=== PATIENT | male | born 1955 | race Caucasian/White ===

== ENCOUNTER → 2016-07-20 | Outpatient (CLI) | payer BC, OTHER ==
[~2016-07-20] MED LIST: ADDERALL XR20 MG PO; ANTIVERT 25MG25 MG PO; CELEBREX 200MG200 MG PO; HCTZ12.5TAB PO; PHENERGAN 25 TA25 MG PO; VALIUM 5MG T5 MG/TAB PO; ZANTAC 150150 MG PO; ZOCOR 20MG20 MG PO
== END ==
LOC: BHSO 15:57
DX: F90.0 Attention-deficit hyperactivity disorder, predominantly inattentive type (principal)

== ENCOUNTER → 2017-01-20 | Outpatient (CLI) | payer BC, OTHER | LOC: BHSO 12:48 | DX: F90.0 Attention-deficit hyperactivity disorder, predominantly inattentive type (principal) ==

== ENCOUNTER → 2017-07-21 | Outpatient (CLI) | payer BC, OTHER ==
[~2017-07-21] MED LIST changes: +ADDERALL XR30 MG PO; +ADDERALL10 MG PO; +FLOMAX 0.40.4 MG/CAP PO; +FLOVENT 220MCG7.9 GM IH; +HCTZ 25MG TAB25 MG PO; +LIPITOR 40MG TA40 MG PO; +OMEGA-31 SGL PO; +PHARMASSURE ZIN50 MG PO; +PROAIR HFA0.09 MG/AC IH; +VITAMIN B COMPL1 SGL PO; +VITAMIN E1000 U/CAP PO
== END ==
LOC: BHSO 13:44
DX: F90.0 Attention-deficit hyperactivity disorder, predominantly inattentive type (principal)
CPT/HCPCS: G0463

== ENCOUNTER 2017-08-13 11:31 | Emergency (ER) | payer BC, OTHER ==
[~2017-08-13] VITALS: Ht 182.9 cm; Wt 119.1 kg
[2017-08-13 11:34] VITALS: BP 164/89; PULSE 70; TEMP 98
[2017-08-13] MEDS ORDERED: VITAMIN E 400 U4001 PO (11:41)
[2017-08-13] MEDS ORDERED: NORCO 325 MG-7.1 TAB PO (11:43)
[2017-08-13] MEDS ORDERED: DOXYCYCLINE HY100 MG PO (11:43)
[2017-08-13] MEDS ORDERED: AFRIN 15 ML15 ML NS (11:44)
[2017-08-13] MEDS ORDERED: IRON 27 MG PO (11:47)
[2017-08-13] MEDS ORDERED: MUCINEX DM 60 M1 TER PO (11:48)
[2017-08-13] MEDS ORDERED: PRILOSEC 20MG20 MG PO (11:50)
[2017-08-13] MEDS ORDERED: FIBER GUMMIES2.5 GM PO (11:51)
[2017-08-13] MEDS ORDERED: ALEVE 220MG220 MG PO (11:51)
[2017-08-13] MEDS ORDERED: PROBIOTIC FORMU1 CAP PO (11:51)
[2017-08-13] MEDS ORDERED: PREDNISONE20 MG PO (12:06)
[2017-08-13] MEDS ORDERED: MOBIC15 MG PO (12:06)
== END 2017-08-13 12:35 | disposition home or self-care (01) ==
LOC: COL.ER 11:31
DX: M54.5 Low back pain (principal); I10 Essential (primary) hypertension; I48.91 Unspecified atrial fibrillation; Z98.890 Other specified postprocedural states; Z88.2 Allergy status to sulfonamides
CPT/HCPCS: J1885; J2360

== ENCOUNTER 2017-08-13 21:55 | Emergency (ER) | payer BC, OTHER ==
[~2017-08-13] VITALS: Ht 182.9 cm; Wt 119.1 kg
[~2017-08-13 21:55] MED LIST changes: +AFRIN 15 ML15 ML NS; +ALEVE 220MG220 MG PO; +DOXYCYCLINE HY100 MG PO; +FIBER GUMMIES2.5 GM PO; +IRON 27 MG PO; +MOBIC15 MG PO; +MUCINEX DM 60 M1 TER PO; +NORCO 325 MG-7.1 TAB PO; +PREDNISONE20 MG PO; +PRILOSEC 20MG20 MG PO; +PROBIOTIC FORMU1 CAP PO; +VITAMIN E 400 U4001 PO
[2017-08-13 21:59] VITALS: TEMP 97.9
[2017-08-13 23:11] LABS: COLLECTION METHOD CLEAN CATCH
[2017-08-13 23:21] LABS: MUCOUS Present /lpf; PH 5 (5-8); SQUAMOUS EPITHELIAL None Seen /hpf; URINE APPEARANCE Clear; URINE BACTERIA None Seen /hpf; URINE BILIRUBIN Negative (NEGATIVE); URINE BLOOD Negative (NEGATIVE); URINE COLOR Yellow; URINE GLUCOSE 3+ (NEGATIVE); URINE KETONE Negative (NEGATIVE); URINE LEUKOCYTE ESTERASE Negative (NEGATIVE); URINE NITRATE Negative (NEGATIVE); URINE PROTEIN(semi-quant) Negative (NEGATIVE); URINE RBC 0-2 /hpf
[2017-08-14 00:37] VITALS: BP 153/93; PULSE 81
== END 2017-08-14 00:25 | disposition home or self-care (01) ==
LOC: COL.ER 21:55
PROVIDERS: Nurse Practitioner
DX: M54.5 Low back pain (principal); I10 Essential (primary) hypertension; J45.909 Unspecified asthma, uncomplicated; Z88.2 Allergy status to sulfonamides; Z79.52 Long term (current) use of systemic steroids
CPT/HCPCS: J1170

== ENCOUNTER 2017-12-20 17:51 | Emergency (ER) | payer BC, OTHER ==
[~2017-12-20] VITALS: Ht 182.9 cm; Wt 120.9 kg
[2017-12-20 17:55] VITALS: TEMP 98.3
[2017-12-20] MEDS ORDERED: PERCOCET 325 MG1 TAB PO (18:41)
[2017-12-20] MEDS ORDERED: HCTZ 25MG TAB25 MG PO (18:41)
[2017-12-20] MEDS ORDERED: ROBAXIN 75750 MG/TAB PO (18:42)
[2017-12-20] MEDS ORDERED: FLOMAX 0.40.4 MG/CAP PO (18:42)
[2017-12-20 18:55] LABS: BASO % 0.4 % (0.0-2.0); EOS # 0.2 (0.0-0.7); EOS % 2.6 % (0-4.0); GRAN # 6.6 (1.4-6.5); GRAN % 71.5 % (42.2-75.2); HEMOGLOBIN 12.7 g/dl (13.5-18.0); LYMPH # 1.6 (1.2-3.4); LYMPH % 17.2 % (20.0-51.0); MEAN CELL VOLUME 97 fl (80.0-100.0); MEAN CORPUSCULAR HEMOGLOBIN 34 pg (27.0-31.0); MEAN CORPUSCULAR HGB CONC 35 g/dl (33.0-37.0); MEAN PLATELET VOLUME 8.3 fl (7.4-10.4); MONO # 0.7 (0.1-0.6); MONO % 7.9 % (1.7-9.3); PLATELET COUNT 360 K/mm3 (130-400); RED BLOOD COUNT 3.74 M/mm3 (4.20-5.60); REDCELL DISTRIBUTION WIDTH-CV 12.1 % (11.5-14.5)
[2017-12-20 18:57] LABS: HEMATOCRIT 36.4 % (42.0-52.0)
[2017-12-20 19:07] LABS: ALBUMIN 3.5 gm/dL (3.5-5.0); BILIRUBIN,TOTAL 0.3 mg/dL (0.0-1.0); CALCIUM 8.7 mg/dL (8.4-10.2); CREATININE, serum 0.83 mg/dL (0.66-1.25); POTASSIUM 3.9 mmol/L (3.4-5.0)
[2017-12-20] MEDS ORDERED: NORCO 325 MG-51 TAB PO (20:42)
[2017-12-20 20:52] VITALS: BP 146/68; PULSE 86
== END 2017-12-20 20:53 | disposition home or self-care (01) ==
LOC: COL.ER 17:51
PROVIDERS: Physician Assistant
DX: M25.562 Pain in left knee (principal); I48.91 Unspecified atrial fibrillation

== ENCOUNTER 2018-06-08 08:58 | Day surgery (SDC) | payer BC, OTHER ==
[~2018-06-08] VITALS: Ht 182.9 cm; Wt 124.6 kg
[~2018-06-08 08:58] MED LIST changes: +NORCO 325 MG-51 TAB PO; +PERCOCET 325 MG1 TAB PO; +ROBAXIN 75750 MG/TAB PO
[2018-06-08 09:38] VITALS: BP 159/82; PULSE 79; TEMP 97.8
[2018-06-08] MEDS ORDERED: COZAAR 50MG50 MG/TAB PO (09:58)
[2018-06-08] MEDS ORDERED: ADDERALL30 MG PO (09:58)
[2018-06-08] MEDS ORDERED: ZYRTEC 10MG10 MG PO (09:59)
[2018-06-08] MEDS ORDERED: TIROSINT50 MC1 PO (10:00)
[2018-06-08] MEDS ORDERED: PROAIR HFA0.09 MG/AC IH (10:01)
[2018-06-08] MEDS ORDERED: MULTI VITAMINS1 TAB PO (10:03)
--- NOTE | 2018-06-08 10:03 | NUR ---
TO VIVIANA AT 0910- CALL LIGHT IN REACH
[2018-06-08 11:30] VITALS: BP 115/72; PULSE 76; TEMP 98.1
--- NOTE | 2018-06-08 11:30 | NUR ---
Pt arrived to room from Endo procedure. Pt walked to chair with x2 assist by nurses. Pt still very drowsy but will answer yes/no to questions. vital signs stable. Pt's in room. Pt denies any pain or N/V at this time. Report received from IVANA Babin. Call light within reach.
[2018-06-08 11:45] VITALS: BP 120/71; PULSE 73; TEMP 98
--- NOTE | 2018-06-08 11:45 | NUR ---
Pt more alert. Asking for coffee and crackers. Denies any pain at this time. Pt's in room. vital signs stable. Call light within reach.
[2018-06-08 12:00] VITALS: BP 125/69; PULSE 71
--- NOTE | 2018-06-08 12:00 | NUR ---
PATIENT AWAKE AND TALKING TO . READY TO LEAVE. DR HAS SEEN PATIENT. VS APPEAR STABLE. WILL DISCHARGE PATIENT.
[2018-06-08 12:11] VITALS: BP 11/75; PULSE 68
== END 2018-06-08 12:23 | disposition home or self-care (01) ==
LOC: SDCO 08:58
DX: Z12.11 Encounter for screening for malignant neoplasm of colon (principal); D12.3 Benign neoplasm of transverse colon; K63.5 Polyp of colon
CPT/HCPCS: OP; J2250; J2405; J3010; J7030

== ENCOUNTER → 2018-07-19 | Outpatient (CLI) | payer BC, OTHER ==
[~2018-07-19] MED LIST changes: +ADDERALL30 MG PO; +COZAAR 50MG50 MG/TAB PO; +MULTI VITAMINS1 TAB PO; +TIROSINT50 MC1 PO; +ZYRTEC 10MG10 MG PO
== END ==
LOC: BHSO 16:01
DX: F90.0 Attention-deficit hyperactivity disorder, predominantly inattentive type (principal)
CPT/HCPCS: G0463

== ENCOUNTER 2018-09-23 20:05 | Emergency (ER) | payer BC, OTHER ==
[~2018-09-23] VITALS: Ht 182.9 cm; Wt 122.7 kg
[2018-09-23 20:10] VITALS: BP 157/80; TEMP 97.4
[2018-09-23 22:09] VITALS: PULSE 81
== END 2018-09-23 21:36 | disposition home or self-care (01) ==
LOC: COL.ER 20:05
DX: S61.011A Laceration without foreign body of right thumb without damage to nail, initial encounter (principal); I48.91 Unspecified atrial fibrillation; I10 Essential (primary) hypertension; F90.9 Attention-deficit hyperactivity disorder, unspecified type; Z23 Encounter for immunization; Z96.643 Presence of artificial hip joint, bilateral; Z98.890 Other specified postprocedural states; Z88.2 Allergy status to sulfonamides; W27.4XXA Contact with kitchen utensil, initial encounter; Y93.G3 Activity, cooking and baking

== ENCOUNTER → 2019-10-04 | Outpatient (CLI) | payer BC, OTHER | LOC: BHSO 13:55 | DX: F90.0 Attention-deficit hyperactivity disorder, predominantly inattentive type (principal) | CPT/HCPCS: G0463 ==

== ENCOUNTER 2019-12-15 13:01 | Emergency (ER) | payer BC, OTHER ==
[~2019-12-15] VITALS: Ht 182.9 cm; Wt 123.6 kg
[2019-12-15 13:05] VITALS: TEMP 98.1
[2019-12-15] MEDS ORDERED: FLOVENT 220MCG7.9 GM IH (13:17)
[2019-12-15] MEDS ORDERED: MAXZIDE-25MG TA1 TAB PO (13:17)
[2019-12-15] MEDS ORDERED: PRILOSEC 20MG20 MG PO (13:18)
[2019-12-15] MEDS ORDERED: NORCO 325 MG-7.1 TAB PO (13:19)
[2019-12-15] MEDS ORDERED: FLEXERIL 1010 MG/TAB PO (15:01)
[2019-12-15] MEDS ORDERED: NORCO 325 MG-51 TAB PO (15:03)
[2019-12-15 15:35] VITALS: BP 118/68; PULSE 76
== END 2019-12-15 15:35 | disposition home or self-care (01) ==
LOC: COL.ER 13:01
DX: M54.5 Low back pain (principal); Z88.2 Allergy status to sulfonamides; X50.1XXA Overexertion from prolonged static or awkward postures, initial encounter
CPT/HCPCS: J1170

== ENCOUNTER → 2020-01-15 | Outpatient (CLI) | payer BC, OTHER ==
[~2020-01-15] VITALS: Ht 182.9 cm; Wt 124.5 kg
[~2020-01-15] MED LIST changes: +FLEXERIL 1010 MG/TAB PO; +MASON NATURAL S1 CAP PO; +MAXZIDE-25MG TA1 TAB PO; +MELATONIN5 M1 SL; -MULTI VITAMINS1 TAB PO; +TRELEGY ELLIPT1 EACH IH
[2020-01-15 12:42] VITALS: BP 178/98; PULSE 87
[2020-01-15 14:20] VITALS: BP 167/96; PULSE 80
[2020-01-15 14:30] VITALS: BP 173/104; PULSE 83
[2020-01-15 14:45] VITALS: BP 158/94; PULSE 76
== END ==
LOC: COL.RAD 12:21
DX: M51.16 Intervertebral disc disorders with radiculopathy, lumbar region (principal)
CPT/HCPCS: J3301

== ENCOUNTER → 2020-01-30 | Outpatient (CLI) | payer BC, OTHER ==
[~2020-01-30] VITALS: Ht 182.9 cm; Wt 121.8 kg
[2020-01-30 12:00] VITALS: BP 161/98; PULSE 82
[2020-01-30 12:33] VITALS: BP 130/86; PULSE 75
== END ==
LOC: COL.RAD 11:38
DX: M51.36 Other intervertebral disc degeneration, lumbar region (principal)
CPT/HCPCS: J3301

== ENCOUNTER 2020-04-24 11:32 | Inpatient (IN) | payer BC, OTHER ==
[~2020-04-24] VITALS: Ht 182.9 cm; Wt 122.3 kg
[2020-04-24 12:21] LABS: BASO % 0.3 % (0.0-2.0); EOS % 0.1 % (0-4.0); GRAN # 4.9 (1.4-6.5); GRAN % 72.8 % (42.2-75.2); HEMATOCRIT 45.1 % (42.0-52.0); HEMOGLOBIN 15.9 g/dl (13.5-18.0); LYMPH % 15.1 % (20.0-51.0); MEAN CELL VOLUME 99 fl (80.0-100.0); MEAN CORPUSCULAR HEMOGLOBIN 35 pg (27.0-31.0); MEAN CORPUSCULAR HGB CONC 35 g/dl (33.0-37.0); MEAN PLATELET VOLUME 9.4 fl (7.4-10.4); MONO # 0.8 (0.1-0.6); MONO % 11.4 % (1.7-9.3); PLATELET COUNT 196 K/mm3 (130-400); RED BLOOD COUNT 4.58 M/mm3 (4.20-5.60); REDCELL DISTRIBUTION WIDTH-CV 12.6 % (11.5-14.5)
[2020-04-24 12:28] LABS: ALBUMIN 4.5 gm/dL (3.5-5.0); BILIRUBIN,TOTAL 1.1 mg/dL (0.0-1.0); CALCIUM 9.3 mg/dL (8.4-10.2); CREATININE, serum 0.94 (0.66-1.25); POTASSIUM 3.7 mmol/L (3.4-5.0); TOTAL PROTEIN 8.5 gm/dL (6.4-8.2)
[2020-04-24 19:02] VITALS: BP 135/59; PULSE 97; TEMP 100.8
--- NOTE | 2020-04-24 20:00 | NUR ---
Initial shift assessment done- did just get some morphine at shift change for pain 01/01 from cough- states very effective and pain now 06/03,, Denies SOB, IV fluids of LR at 125cc/hr,, Tele on,, Up in room as tolerated, steady on feet.
[2020-04-24 23:08] VITALS: BP 121/71; PULSE 77; TEMP 101.7
[2020-04-25] VITALS (7 sets, daily range): BP systolic 106–149; BP diastolic 52–80; PULSE 77–92; TEMP 98.9–102.6
--- NOTE | 2020-04-25 05:21 | NUR ---
Temp done to 98.9, no requests, o2 sats 93% on room air. Did get Morphine x1 for pain this shift
--- NOTE | 2020-04-25 07:25 | NUR ---
Patient alert and oriented. observe patient cough. patient resting in bed at this time. NS 100ML/HR
[2020-04-25 07:33] LABS: CALCIUM 8.4 mg/dL (8.4-10.2); CREATININE, serum 0.82 (0.66-1.25); POTASSIUM 3.6 mmol/L (3.4-5.0)
--- NOTE | 2020-04-25 11:02 | NUR ---
First visit from the owner/operator. No needs right now.
--- NOTE | 2020-04-25 13:40 | NUR ---
Plan to return home with Spouse Lidia locally. SW completed assessment with patient over the phone. Patient reports that his PCP is Dr. Stringer with last appointment 1 month ago. Patient reports that he obtains medications via [facility]. will assist with transport. Patient reports that he has a walker and cane and has a nuebulizer that he uses for breathing treatments. DPOA is designated as , also has a living will. Will continue to follow for care.
[2020-04-25] MEDS ORDERED: TESSALON P100 MG/CAP PO (14:19)
[2020-04-25] MEDS ORDERED: PHENERGAN W/CO120 M1 PO (14:21)
--- NOTE | 2020-04-25 15:16 | NUR ---
Patient temp was 102.6F, gave tylenol, reckeck was 100F. Dr Sellers was informed. UA culture and Blood culture was ordered. Patient is not discharging today at this moment.
[2020-04-25 16:37] LABS: COLLECTION METHOD CLEAN CATCH
--- NOTE | 2020-04-25 16:57 | NUR ---
Patient covid19 nasopharynx result came back positive. patient is been moved to covid19 unit. RN informed Dr Sellers.
[2020-04-25 17:30] LABS: PH 5 (5-8); URINE APPEARANCE Clear; URINE BILIRUBIN Negative (NEGATIVE); URINE COLOR Yellow; URINE GLUCOSE Negative (NEGATIVE); URINE KETONE Negative (NEGATIVE); URINE PROTEIN(semi-quant) 1+ (NEGATIVE)
[2020-04-25 17:31] LABS: MUCOUS Present /lpf; URINE BACTERIA None Seen /hpf; URINE BLOOD Negative (NEGATIVE); URINE LEUKOCYTE ESTERASE Negative (NEGATIVE); URINE NITRATE Negative (NEGATIVE); URINE RBC 0-2 /hpf; URINE UROBILINOGEN Negative (NEGATIVE)
--- NOTE | 2020-04-25 18:42 | NUR ---
Patient was started on LR 100mL/hr, decadron 6mg. Patient report that he recently received covid19 vaccine on the 04/21/20. Patient resting in the room at the moment. temp recheck 99.6.
--- NOTE | 2020-04-25 19:02 | NUR ---
report given to
[2020-04-25 20:55] LABS: ARTERIAL BLD GAS O2 SATURATION 92.8 % (92-100); ARTERIAL BLOOD GAS BASE EXCESS -1.3 (-2-2); ARTERIAL BLOOD GAS PCO2 32.7 mmHg (35-45); ARTERIAL BLOOD GAS PO2 62.9 mmHg (80-100); ARTERIAL BLOOD GAS pH 7.45 (7.35-7.45)
--- NOTE | 2020-04-25 21:30 | NUR ---
Initial shift assessment done- temp 100.3, Will give Tylenol when due-- requesting some orange juice and apple juice- Tele on, IV fluids of LR at 100cc/hr-- respiratory therapy here to put patient on 3L/nc due to ABG results- was 92% on RA,, Althea CUTLER aware.
[2020-04-26 03:52] VITALS: BP 125/62; PULSE 60; TEMP 97.7
--- NOTE | 2020-04-26 06:17 | NUR ---
Quiet night-no requests, o2 sats 96% on 3L/nc.
[2020-04-26 08:14] VITALS: BP 133/77; PULSE 75; TEMP 98.3
--- NOTE | 2020-04-26 08:30 | NUR ---
PT PLEASANT, EXTENSION OXYGEN TUBING BROUGHT IN FOR PT, PT REPORTS GETTING A GREAT NIGHT SLEEP, "THE BEST SLEEP I'VE HAD IN A MONTH". PT HAS DRY COUGH, ASSESMENT PERFORMED, BREAKFAST AND WATER BROUGHT IN FOR PT, VITALS TAKEN AND REVIEWED, MEDICATIONS GIVEN, NO OTHER NEEDS.
[2020-04-26 11:27] VITALS: BP 132/76; PULSE 80; TEMP 98
--- NOTE | 2020-04-26 11:57 | NUR ---
PT DENIES ANY WORSENING SOB, PT REPORTS NEW NASAL DRAINAGE, TISSUES BROUGHT IN FOR PT, VITALS TAKEN, PT REPORTS BEING VERY GRATEFUL FOR CARE RECIEVED. NO OTHER NEEDS.
[2020-04-26 15:57] LABS: ARTERIAL BLD GAS O2 SATURATION 95.4 % (92-100); ARTERIAL BLD GAS TCO2 CT 22.8; ARTERIAL BLOOD GAS BASE EXCESS -0.9 (-2-2); ARTERIAL BLOOD GAS HCO3 21.8 meq/L (22-26); ARTERIAL BLOOD GAS PCO2 31.2 mmHg (35-45); ARTERIAL BLOOD GAS pH 7.46 (7.35-7.45)
[2020-04-26 16:30] VITALS: BP 122/65; PULSE 73; TEMP 95.5
--- NOTE | 2020-04-26 18:05 | NUR ---
PT VERY PLEASANT, AOX4, DOES NOT REPORT WORSENING SOB, PT STILL ON 3L NC, PT EATING WELL, HAS GOOD INPUT/OUTPUT, IV FLUIDS DC'D. ANTIBIOTICS HANGING. PT INDEPENDENT IN ROOM, FRESH ICE WATER IN ROOM, NO OTHER NEEDS AT THIS TIME.
[2020-04-26 21:26] VITALS: BP 140/73; PULSE 66; TEMP 98.5
--- NOTE | 2020-04-26 23:48 | NUR ---
Individual denied pain and or discomfort. VSS. No s/s distress noted.
[2020-04-27] VITALS (7 sets, daily range): BP systolic 120–148; BP diastolic 48–80; PULSE 64–81; TEMP 97.4–98.4
[2020-04-27 05:43] LABS: ARTERIAL BLD GAS O2 SATURATION 96.6 % (92-100); ARTERIAL BLD GAS TCO2 CT 22.2; ARTERIAL BLOOD GAS BASE EXCESS -1.7 (-2-2); ARTERIAL BLOOD GAS HCO3 21.3 meq/L (22-26); ARTERIAL BLOOD GAS PO2 87.4 mmHg (80-100); ARTERIAL BLOOD GAS pH 7.45 (7.35-7.45)
--- NOTE | 2020-04-27 06:52 | NUR ---
Noted to oncoming nurse unable to obtain Doxy for am dose and to please give. Noted understanding.
[2020-04-27 07:02] LABS: ALBUMIN 3.8 gm/dL (3.5-5.0); BASO % 0.2 % (0.0-2.0); BILIRUBIN,TOTAL 0.6 mg/dL (0.0-1.0); CALCIUM 9.1 mg/dL (8.4-10.2); CREATININE, serum 0.78 (0.66-1.25); GRAN # 8.8 (1.4-6.5); GRAN % 76.2 % (42.2-75.2); HEMATOCRIT 40.6 % (42.0-52.0); LYMPH # 1.9 (1.2-3.4); MEAN CELL VOLUME 99 fl (80.0-100.0); MEAN CORPUSCULAR HEMOGLOBIN 34 pg (27.0-31.0); MEAN CORPUSCULAR HGB CONC 34 g/dl (33.0-37.0); MEAN PLATELET VOLUME 10.1 fl (7.4-10.4); MONO # 0.8 (0.1-0.6); MONO % 7.2 % (1.7-9.3); PLATELET COUNT 235 K/mm3 (130-400); POTASSIUM 3.8 mmol/L (3.4-5.0); RED BLOOD COUNT 4.11 M/mm3 (4.20-5.60); REDCELL DISTRIBUTION WIDTH-CV 12.5 % (11.5-14.5); TOTAL PROTEIN 7.4 gm/dL (6.4-8.2)
[2020-04-27 07:24] LABS: HEMOGLOBIN 13.9 g/dl (13.5-18.0)
--- NOTE | 2020-04-27 09:26 | NUR ---
PT SLEEPING UPON ENTRY, FRESH ICE WATER BROUGHT IN, PT REPORTS PAIN IN LOW BACK WHEN COUGHING. HE SAYS WHEN HE COUGHS IT PRESENTS A 8/10. DENIES NEED FOR PHARMACOLOGICAL INTERVENTION BECAUSE "WHEN I LAY A CERTAIN WAY IT GOES AWAY". PT PLEASANT, ANTIBIOTIC HUNG, ALL OTHER MEDICATIONS GIVEN, VITALS REVIEWED, ASSESSMENT PERFORMED. NO OTHER NEEDS.
--- NOTE | 2020-04-27 11:32 | NUR ---
BLOOD DRAWN FROM PT, PT TURNED DOWN TO 1L NC SATTING 94%. PT REPORTING BACK PAIN W/ COUGH. PT AGREED TO TYLENOL AND IT WAS GIVEN. DR. MORALES ORDERED NORCO, WILL GIVE 1 NORCO IN ADDITION.
--- NOTE | 2020-04-27 12:23 | NUR ---
PT TAKEN OFF OXYGEN, WALKED AROUND ROOM FOR A FEW MINUTES, SATTING 90-95% RA. PT DID NOT REPORT SOB. NO OTHER NEEDS AT THIS TIME.
--- NOTE | 2020-04-27 18:12 | NUR ---
PT PLEASANT, EXCITED FOR DISCHARGE TOMORROW, IV ANTIBIOTICS HANGING CURRENTLY, PT REPORTING INC APPETITE, LOW BACK PAIN IS BETTER MANAGED WITH NORCO PRN. ALL MEDICATIONS GIVEN, PT ON ROOM AIR, NO OTHER NEEDS AT THIS TIME.
[2020-04-28 04:04] VITALS: BP 127/70; PULSE 66; TEMP 97.8
[2020-04-28 07:52] LABS: ALBUMIN 3.7 gm/dL (3.5-5.0); BILIRUBIN,TOTAL 0.6 mg/dL (0.0-1.0); CALCIUM 8.9 mg/dL (8.4-10.2); CREATININE, serum 0.73 (0.66-1.25); POTASSIUM 3.4 mmol/L (3.4-5.0); TOTAL PROTEIN 6.9 gm/dL (6.4-8.2)
[2020-04-28 08:02] VITALS: BP 123/72; PULSE 70; TEMP 97.4
--- NOTE | 2020-04-28 09:00 | NUR ---
PATIENT IS A&O. VSS WITH TELE INPLACE. DENIES SOA OR COUGH. A&P LUNG MOREIRA ARE DEMINISHED THROUGHOUT. 97% ON RA. TOLERATED ACTIVITY WELL. INDEPENDENT IN ROOM. PATIENT HOPING TO DISCHARGE HOME LATER TODAY. HEAD TO TOE ASSESSMENT COMPLETE. NO C/O N/V. ATE BREAKFAST WELL. AM MEDS GIVEN. NO OTHER NEEDS.
--- NOTE | 2020-04-28 10:30 | NUR ---
HOSPITALIST ROUNDING. SEE DISCHARGE ORDERS AFTER IV ABX.
[2020-04-28] MEDS ORDERED: DECADRON6 MG PO (10:37)
[2020-04-28] MEDS ORDERED: DOXYCYCLINE 10100 MG PO (10:37)
[2020-04-28] MEDS ORDERED: PROAIR HFA0.09 MG/AC IH (10:38)
[2020-04-28 12:06] VITALS: BP 148/90; PULSE 70; TEMP 97.5
--- NOTE | 2020-04-28 16:30 | NUR ---
PATIENT DISCHARGING HOME VIA WC TO PERSONAL VEHICLE WHERE IS WAITING IN THE CAR. GAVE DISCHARGE INSTRUCTIONS, E-SCRIPTS SENT, AND F/U APTS DISCUSSED. ANSWERED ALL QUESTIONS/CONCERNS. DC'D RIGHT AC IV, COVERED SITE WITH JOSÉ LUIS & MEG. PATIENT DISCHARGED.
== END 2020-04-28 16:30 | DRG 177 ==
LOC: COL.ER 11:32 → MEDICAL 13:01
PROVIDERS: Family Medicine
PROC: XW033E5 Introduction of Remdesivir Anti-infective into Peripheral Vein, Percutaneous Approach, New Technology Group 5 (ICD-10-PCS; principal; 2020-04-24)
DX: U07.1 COVID-19 (principal); J12.82 Pneumonia due to coronavirus disease 2019; E66.9 Obesity, unspecified; I10 Essential (primary) hypertension; J45.909 Unspecified asthma, uncomplicated; M54.9 Dorsalgia, unspecified; G89.29 Other chronic pain; N40.0 Benign prostatic hyperplasia without lower urinary tract symptoms; I48.91 Unspecified atrial fibrillation; F90.9 Attention-deficit hyperactivity disorder, unspecified type; Z88.2 Allergy status to sulfonamides; Z68.36 Body mass index [BMI] 36.0-36.9, adult
CPT/HCPCS: 99232-AI; 99233-AI; 99239; J0696; J1100; J1170; J1644; J1650; J2270; J2405; J7030; J7050; J7120; J8540

== ENCOUNTER → 2022-05-24 | Outpatient (CLI) | payer BC, MEDICARE, OTHER ==
[~2022-05-24] MED LIST changes: +DECADRON6 MG PO; +DOXYCYCLINE 10100 MG PO; +PHENERGAN W/CO120 M1 PO; +TESSALON P100 MG/CAP PO
== END ==
LOC: COL.RAD 04-21 07:30
DX: M23.303 Other meniscus derangements, unspecified medial meniscus, right knee (principal); M94.261 Chondromalacia, right knee; M71.21 Synovial cyst of popliteal space [Baker], right knee

== ENCOUNTER 2023-06-09 05:29 | Day surgery (SDC) | payer BC, MEDICARE, OTHER ==
[~2023-06-09] VITALS: Ht 152.4 cm; Wt 129.4 kg
[~2023-06-09 05:29] MED LIST changes: +LR 1,000 ML IV SCH; +Ondansetron 4 MG/2 ML VIAL IV PRN
[2023-06-09 05:47] VITALS: BP 123/81; PULSE 80; TEMP 97.4
[2023-06-09] MEDS ORDERED: ATARAX 25MG25 MG/TAB PO (05:56)
[2023-06-09] MEDS ORDERED: CYMBALTA 30MG30 MG PO (05:57)
[2023-06-09] MEDS ORDERED: COZAAR100 MG PO (05:57)
[2023-06-09] MEDS ORDERED: SYNTHROID0.075 MG/T PO (05:58)
[2023-06-09] MEDS ORDERED: ADDERALL XR30 MG PO (06:01)
[2023-06-09] MEDS ORDERED: CRESTOR 10MG10 MG PO (06:01)
[2023-06-09] MEDS ORDERED: Glycopyrrolate 0.2 MG/ML 1 ML VIAL ONE (06:20)
[2023-06-09] MEDS ORDERED: Lidocaine PF 2% (20 MG/ML) 5 ML VIAL ONE (06:20)
[2023-06-09 07:25] VITALS: BP 97/62; PULSE 88; TEMP 98.2
[2023-06-09 07:40] VITALS: BP 108/62; PULSE 75
[2023-06-09 07:55] VITALS: BP 122/70; PULSE 76
--- NOTE | 2023-06-09 17:25 | NUR ---
[id number]: PT TO RECOVERY BAY FROM ENDO ALEX S/P COLONOSCOPY WITH POLYPECTOMY A&O, PLACED ON MONITOR, VSS ON RA RECEIVED REPORT AND ASSUMED CARE OF PT FROM ENDO TANK CALIBRATOR AT BEDSIDE PROVIDED FOOD/FLUIDS, TOLERATING WELL MD IN TO SPEAK WITH PT POST-PROCEDURE PT HAS REMAINED A&O, NAD, VSS ON RA, TOLERATING PO, IS WITHOUT SIGNIFICANT COMPLAINT, WITH STEADY GAIT THRU OUT STAY IV D/C'D. D/C INSTRUCTIONS, ANY FOLLOW UP REVIEWED AND HANDED TO PT. ALL QUESTIONS AND CONCERNS ADDRESSED TO PT SATISFACTION. TAKEN TO EXIT VIA W/C WITH ALL BELONGINGS AND PAPERWORK IN HAND, ASSISTED INTO PASSENGER SEAT OF POV. FAMILY TO DRIVE HOME.
== END 2023-06-09 08:05 | disposition home or self-care (01) ==
LOC: SDCO 05:29
DX: Z12.11 Encounter for screening for malignant neoplasm of colon (principal); D12.5 Benign neoplasm of sigmoid colon
CPT/HCPCS: J2704; J7120

== ENCOUNTER 2024-02-16 06:12 | Emergency (ER) | payer BC, MEDICARE, OTHER ==
[~2024-02-16] VITALS: Ht 190.5 cm; Wt 116.4 kg
[~2024-02-16 06:12] MED LIST changes: +ATARAX 25MG25 MG/TAB PO; +COZAAR100 MG PO; +CRESTOR 10MG10 MG PO; +CYMBALTA 30MG30 MG PO; -LR 1,000 ML IV SCH; -Ondansetron 4 MG/2 ML VIAL IV PRN; +SYNTHROID0.075 MG/T PO
[2024-02-16 06:20] VITALS: TEMP 98.8
[2024-02-16] MEDS ORDERED: Ketorolac 15 MG/ML VIAL IV ONE (06:30)
[2024-02-16] MEDS ORDERED: methylPREDNISolone Sod Succ 125 MG/2 ML VIAL IV ONE (06:30)
[2024-02-16] MEDS ORDERED: NS 500 ML IV SCH ×2 (06:30→06:45)
[2024-02-16] MEDS ORDERED: Albuterol/Ipratropium 3 MG-0.5 MG/3 ML Neb Soln IH SCH (06:30)
[2024-02-16 06:53] LABS: BASO % 0.2 % (0.0-2.0); EOS # 0.1 K/mm3 (0.0-0.7); EOS % 0.6 % (0.0-4.0); GRAN % 73.9 % (42.2-75.2); HEMATOCRIT 41.5 % (42.0-52.0); LYMPH # 1.3 K/mm3 (1.2-3.4); LYMPH % 16.2 % (20.0-51.0); MEAN CELL VOLUME 93 fl (80.0-100.0); MEAN CORPUSCULAR HEMOGLOBIN 31 pg (27-31); MEAN CORPUSCULAR HGB CONC 34 g/dl (33.0-37.0); MEAN PLATELET VOLUME 9.1 fl (7.4-10.4); MONO # 0.7 K/mm3 (0.1-0.6); MONO % 8.7 % (1.7-9.3); PLATELET COUNT 262 K/mm3 (130-400); RED BLOOD COUNT 4.47 M/mm3 (4.20-5.60); REDCELL DISTRIBUTION WIDTH-CV 13.1 % (11.5-14.5)
[2024-02-16] MEDS ORDERED: MOUNJARO7.5 MG/0.5 SQ (07:04)
[2024-02-16] MEDS ORDERED: AMOXICILLIN 8751 TAB PO ×2 (07:07→08:41)
[2024-02-16 07:12] LABS: ALBUMIN 3.3 g/dL (3.4-4.8); BILIRUBIN,TOTAL 0.4 mg/dL (0.2-1.2); CALCIUM 8.7 mg/dL (8.4-10.2); CREATININE, serum 0.84 mg/dL (0.72-1.25); POTASSIUM 3.3 mEq/L (3.5-4.5); TOTAL PROTEIN 6.4 g/dl (6.2-8.1)
[2024-02-16 07:18] LABS: TROPONIN-I 0.023 ng/mL (0.00-0.033)
[2024-02-16] MEDS ORDERED: PREDNISONE20 MG PO (08:41)
[2024-02-16 09:04] VITALS: BP 147/101; PULSE 82
== END 2024-02-16 09:15 | disposition home or self-care (01) ==
LOC: COL.ER 06:12
PROVIDERS: Emergency Medicine
DX: J45.901 Unspecified asthma with (acute) exacerbation (principal); U07.1 COVID-19
CPT/HCPCS: J1885; J2919; J7040